=== PATIENT | male | born 1935 | race Caucasian/White ===

== ENCOUNTER 2017-08-01 11:04 | Inpatient (IN) | payer MEDICARE, BC ==
[2017-08-01 12:38] LABS: Hematocrit 38.3 % (42.0-52.0); Hemoglobin 12.7 gm/dL (13.5-18.0); Mean Cell Volume 86.1 fl (78-100); Mean Corpuscular Hemoglobin 28.5 pg (27-31); Mean Corpuscular Hgb Conc 33.2 g/dl (32-36); Mean Platelet Volume 8.8 fl (6.0-9.5); Neutrophil % 81.8 % (42-75.0); Platelet Count 386 K/mm3 (150-450); Red Blood Count 4.45 M/mm3 (4.7-6.0); Red Cell Distribution Width 14.2 % (11.5-14.0); White Blood Count 17.1 K/mm3 (4.0-10.5)
[2017-08-01 12:44] LABS: Urine Bilirubin 1 mg/dl (NEGATIVE); Urine Blood 50 /ul (NEGATIVE); Urine Ketone Negative (NEGATIVE); Urine Nitrite Negative (NEGATIVE); Urine Protein 100 mg/dL (NEGATIVE); Urine Specific Gravity >=1.030 SP.GR. (1.005-1.030)
[2017-08-01 12:53] LABS: Albumin * 2.8 gm/dl (3.4-5.0); Anion Gap 10.1 mmol/L (6.8-13.8); BUN/Creatinine Ratio 17.9 (9.0-21.6); Bilirubin, Total 0.7 mg/dL (0.0-1.1); Ca. Corrected For Albumin 10.2 mg/dL (8.4-10.2); Calcium * 9.6 mg/dL (7.9-10.9); Carbon Dioxide 32.4 mmol/L (24-32.6); Potassium 3.5 mmol/L (3.4-4.6); Total Protein 8.2 gm/dL (6.2-8.2)
[2017-08-01 12:53] LABS: Urine Appearance Clear; Urine Bacteria TRACE; Urine Color Dark Yellow; Urine WBC None Seen /hpf (0-5)
[2017-08-01] MEDS ORDERED: AZITHROMYCIN 250 MG TABLET PO ONE (14:01)
[2017-08-01] MEDS ORDERED: AZITHROMYCIN 250 MG TABLET ONE (14:02)
--- NOTE | 2017-08-01 14:12 | ERNOTE ---
Medical Problem HPI - Narrative Date of Service: 08/01/17 - General Chief Complaint: Flu Symptoms Time Seen by Provider: 08/01/17 12:19 Source: patient, RN notes reviewed Exam Limitations: no limitations - Immun/Allergies/Home Medications Immunizations: IMMUNIZATION HX Immunizations Up to Date Yes History of Influenza Vaccine Yes Hx Pneumococcal Vaccination Yes Allergies/Adverse Reactions: Allergies Penicillins Allergy (Unknown, Verified 08/01/17 11:23) Home Medications: HOME MEDICATIONS NK [No Home Medication] 08/01/17 [Last Taken Unknown] - History of Present History Narrative: Kwaku is a 82 year old male who is ambulatory to the ED from home for flu-like symptoms that began shortly after taking his daughter to the clinic on 07/20. She was diagnosed with influenza. He reports a cough, weakness, chills, body aches and vomiting since then. He has had pneumonia in the past and states he feels like that is what he has now. Date (Duration): 07/20/17 Review of Systems - Review of Systems Constitutional: Present: chills, fatigue, malaise. Absent: recent illness EYE: Absent: eye pain, eye discharge ENT: Present: nose congestion, nasal drainage. Absent: ear pain, sore throat Respiratory: Present: shortness of breath, cough. Absent: orthopnea, wheezing Cardiology: Absent: chest pain, palpitations, edema Gastrointestinal/Abdominal: Present: nausea, vomiting, eating less, drinking less. Absent: diarrhea, abdominal pain Genitourinary: Absent: dysuria, hematuria Musculoskeletal: Present: muscle pain. Absent: neck pain Skin: Absent: rash, lesions Neurological: Absent: headache, dizziness/light-headedness Endocrine: Present: no symptoms reported Hematologic/Lymphatic: Absent: easy bruising, easy bleeding Psych: Present: no symptoms reported - Patient's Past Medical History Patient History - Medical: No pertinent hx Patient History - Cardiac/Respiratory: No pertinent hx Patient History - Cancer: No Hx of Cancer Patient History - Surgical Procedures: Orthopedic Patient History - Other: None - Social History Living Situations: alone Psych History: No pertinent hx Smoking Status: Never smoker Alcohol Use: none Drug Use: none - Immunizations Immunizations Up to Date: Yes Hx Pneumococcal Vaccination: Yes History of Influenza Vaccine: Yes Physical Exam - Physical Exam General Appearance: Present: wd/wn, alert, other - Pleasant, in no acute distress but appears to not feel well Head Exam: Present: normal inspection. Absent: swelling, tenderness Eye Exam: Normal inspection: bilateral Ears, Nose, Throat: Present: normal except - - lips cracked and dry, normal pharynx Neck: Present: normal inspection, nontender, supple Respiratory: Present: no respiratory distress, chest nontender, accessory muscle use - mild, crackles - Left lower lung Cardiovascular/Chest: Present: regular rate, rhythm, no murmur Gastrointestinal/Abdominal: Present: nontender, nondistended, soft Extremity Exam: Present: normal inspection, no edema Neurological Exam: Present: alert, oriented, normal mood/affect, no motor/ sensory deficits Skin Exam: Present: warm/dry, pallor ED Progress - Results and Orders Patient's Lab Results:: I have reviewed the patient's lab results. - Vital Signs Patient's Vital Signs:: I have reviewed the patient's vital signs. Vital Signs: Vital Signs 08/01/17 11:18 Temperature 37.4 C Pulse Rate 88 Respiratory 17 Rate Blood Pressure 142/72 O2 Sat by Pulse 92 Oximetry - X-Ray X-Ray #1 X-Ray: chest Interpretation: Reviewed by me X-ray Comments: Left lower lobe pneumonia - Progress/Reassessment Chief Complaint: Flu Symptoms Progress:: Unchanged Departure Clinical Impression: Left lower lobe pneumonia Qualifiers: Pneumonia type: due to unspecified organism Qualified Code(s): J18.1 - Lobar pneumonia, unspecified organism - Departure Disposition: [facility] Condition: Fair
[2017-08-01] MEDS ORDERED: cefTRIAXone SODIUM 1,000 MG in DEXTROSE 5 % IN WATER 50 ML IV ONE ×2 (14:15)
[2017-08-01] MEDS: NORMAL SALINE 1,000 ML IV PRN (21:54)
--- NOTE | 2017-08-01 23:19 | HP ---
Chief Complaint - Chief Complaint Date of Service: 08/01/17 Time of Service: 16:30 Chief Complaint: Shortness of breath History of Present Illness: Kwaku is an 82 yo male that reports worsening shortness of breath and cough over the past week. His over the last week and since then he has been getting more short of breath. He presented to the ER today and chest xray shows left lower lobe pneumonia. Oxygen saturation was 89% on room air in the ER and he was placed on oxygen to keep sats >90%. - Patient's Past Medical History Patient History - Medical: No pertinent hx Patient History - Cardiac/Respiratory: Pneumonia Patient History - Cancer: No Hx of Cancer Patient History - Surgical Procedures: Orthopedic Patient History - Other: None - Family History Mother Family History - Medical: , History Unknown Family History - Cardiac/Respiratory: History Unknown Family History - Cancer: Other Father Family History - Medical: , History Unknown Family History - Cardiac/Respiratory: History Unknown Family History - Cancer: Liver Brother Family History - Medical: , History Unknown Family History - Cardiac/Respiratory: History Unknown Family History - Cancer: History Unknown Sister Family History - Medical: History Unknown Family History - Cardiac/Respiratory: History Unknown Family History - Cancer: History Unknown - Social History Living Situations: alone Psych History: No pertinent hx Smoking Status: Never smoker Have you smoked in the past 12 months: No Alcohol Use: none Drug Use: none - Immunizations Immunizations Up to Date: Yes Hx Pneumococcal Vaccination: Yes History of Influenza Vaccine: Yes Review Of Systems (GEN) - Review of Systems Generalized/Overall Review: Present: Weakness, Chills, Fever EENTM: Present: No Symptoms Reported Respiratory: Present: Cough, Shortness of Breath. Absent: Orthopnea, Stridor, Wheezing Cardiac: Absent: Chest Pain, Edema, Palpitations Abdominal: Absent: Nausea, Vomiting Genitourinary: Present: No Symptoms Reported Musculoskeletal: Present: No Symptoms Reported Neurological: Present: No Symptoms Reported Skin: Present: No Symptoms Reported Endocrine: Present: No Symptoms Reported Immunizations: IMMUNIZATION HX Immunizations Up to Date Yes History of Influenza Vaccine Yes Hx Pneumococcal Vaccination Yes Allergies/Adverse Reactions: Allergies Allergy/AdvReac Type Severity Reaction Status Date / Time Sulfa (Sulfonamide Allergy Severe Anaphylaxis Verified 08/08/17 16:27 Antibiotics) Penicillins Allergy Unknown Verified 08/08/17 16:27 Home Medications: HOME MEDICATIONS Levofloxacin [Levaquin] 750 mg PO DAILY #10 tab 08/09/17 [Last Taken Unknown] Ranitidine HCl [Zantac] 300 mg PO HS #30 tab 08/09/17 [Last Taken Unknown] hydrOXYzine HCL [Atarax] 25 mg PO QID PRN #90 tablet 08/09/17 [Last Taken Unknown] Exam - Exam Vital Signs: Vital Signs - Last Taken Temp 36.7 C 08/01/17 18:39 Pulse 88 08/01/17 18:39 Resp 20 08/01/17 18:39 BP 134/67 08/01/17 18:39 Pulse Ox 89 L 08/01/17 18:39 Constitutional: Present: Alert, Oriented x3, Cooperative ENT Exam: Present: hearing grossly normal Eye Exam: bilateral eye: normal inspection Respiratory: Present: crackles - LLL Cardiovascular/Chest: Present: regular rate, rhythm, no murmur Abdomen: Present: Normal bowel sounds, soft, nontender, nondistended Skin Exam: Present: normal color, warm/dry, no cyanosis Diagnostic Studies: Laboratory Results WBC 17.1 K/mm3 (4.0-10.5) H 08/01/17 12:15 RBC 4.45 M/mm3 (4.7-6.0) L 08/01/17 12:15 Hgb 12.7 gm/dL (13.5-18.0) L 08/01/17 12:15 Hct 38.3 % (42.0-52.0) L 08/01/17 12:15 MCV 86.1 fl (78-100) 08/01/17 12:15 MCH 28.5 pg (27-31) 08/01/17 12:15 MCHC 33.2 g/dl (32-36) 08/01/17 12:15 RDW 14.2 % (11.5-14.0) H 08/01/17 12:15 Plt Count 386 K/mm3 (150-450) 08/01/17 12:15 MPV 8.8 fl (6.0-9.5) 08/01/17 12:15 Immature Gran % (Auto) 2.30 % (0.001-0.429) H 08/01/17 12:15 Immature Gran # (Auto) 0.40 K/mm3 (0.000-0.0310) H 08/01/17 12:15 Neutrophils % 81.8 % (42-75.0) H 08/01/17 12:15 Lymphocytes % 6.9 % (20-51) L 08/01/17 12:15 Monocytes % 8.7 % (0.0-9) 08/01/17 12:15 Eosinophils % 0.0 % (0.0-3.0) 08/01/17 12:15 Basophils % 0.3 % (0.0-1.0) 08/01/17 12:15 Nucleated RBC % 0.0 k/mm3 (0-1) 08/01/17 12:15 Neutrophils # 14.0 K/mm3 (1.3-6.0) H 08/01/17 12:15 Lymphocytes # 1.2 k/mm3 (1.5-3.5) L 08/01/17 12:15 Monocytes # 1.5 k/mm3 (0.0-1.0) H 08/01/17 12:15 Eosinophils # 0.0 k/mm3 (0.0-0.7) 08/01/17 12:15 Absolute Basophils 0.1 k/mm3 (0.0-0.1) 08/01/17 12:15 Sodium 136 mmol/L (132-142) 08/01/17 12:15 Plasma Sodium 136 mmol/L (130-142) 08/01/17 12:15 Potassium 3.5 mmol/L (3.4-4.6) 08/01/17 12:15 Chloride 97 mmol/L (97-106) 08/01/17 12:15 Carbon Dioxide 32.4 mmol/L (24-32.6) 08/01/17 12:15 Anion Gap 10.1 mmol/L (6.8-13.8) 08/01/17 12:15 BUN 20 mg/dL (6-23) 08/01/17 12:15 Creatinine 1.12 mg/dL (0.4-1.4) 08/01/17 12:15 Est GFR (Non-Af Amer) 67 mL/min (60-130) 08/01/17 12:15 BUN/Creatinine Ratio 17.9 (9.0-21.6) 08/01/17 12:15 Random Glucose 121 mg/dL (70-110) H 08/01/17 12:15 Lactic Acid, Venous 1.3 mmol/L (0.4-1.9) 08/01/17 12:15 Calcium 9.6 mg/dL (7.9-10.9) 08/01/17 12:15 Calcium Adj for Albumin 10.2 mg/dL (8.4-10.2) 08/01/17 12:15 Total Bilirubin 0.7 mg/dL (0.0-1.1) 08/01/17 12:15 AST 63 U/L (0-48) H 08/01/17 12:15 ALT 84 U/L (19-67) H 08/01/17 12:15 Alkaline Phosphatase 82 U/L (50-170) 08/01/17 12:15 Total Protein 8.2 gm/dL (6.2-8.2) 08/01/17 12:15 Albumin 2.8 gm/dl (3.4-5.0) L 08/01/17 12:15 Urine Color Dark yellow 08/01/17 12:39 Urine Appearance Clear 08/01/17 12:39 Urine pH 6.0 pH (5.0-7.0) 08/01/17 12:39 Ur Specific [place] >=1.030 SP.GR. (1.005-1.030) 08/01/17 12:39 Urine Protein 100 mg/dL (NEGATIVE) H 08/01/17 12:39 Urine Glucose (UA) Negative mg/dL (NEGATIVE) 08/01/17 12:39 Urine Ketones Negative mg/dL (NEGATIVE) 08/01/17 12:39 Urine Blood 50 /ul (NEGATIVE) H 08/01/17 12:39 Urine Nitrate Negative (NEGATIVE) 08/01/17 12:39 Urine Bilirubin 1 mg/dl (NEGATIVE) H 08/01/17 12:39 Urine Ictotest Negative (NEGATIVE) 08/01/17 12:39 Prot Sulfosalicylic Acd Negative mg/dL (0) 08/01/17 12:39 Urine Urobilinogen 2.0 EU/dl (NORMAL) H 08/01/17 12:39 Ur Leukocyte Esterase Negative /ul (NEGATIVE) 08/01/17 12:39 Urine RBC 5-10 /hpf (0-5) H 08/01/17 12:39 Urine WBC None seen /hpf (0-5) 08/01/17 12:39 Ur Epithelial Cells 0-5 /hpf (0-5) 08/01/17 12:39 Urine Bacteria Trace (NONE) 08/01/17 12:39 Urine Culture Comments No culture indicated 08/01/17 12:39 Influenza Type A Ag Negative (NEGATIVE) 08/01/17 11:24 Influenza Type B Ag Negative (NEGATIVE) 08/01/17 11:24 Group A Strep Rapid Negative (NEGATIVE) 08/01/17 11:24 Assessment/Plan - Narrative Narrative: Kwaku is an 82 yo male with acute respiratory failure secondary to left lower lobe pneumonia. Will treat with oxygen at 2lpm to keep sats >90% and wean off oxygen as able. Will treat pneumonia with cefdinir and azithromycin. Due to pneumonia with acute respiratory failure will need to admit to acute inpatient and expect 2-3 midnight hospital course to treat and wean from oxygen. - Assessment/Plan (1) Acute respiratory failure with hypoxia Problem: Acute (2) Left lower lobe pneumonia Problem: Acute Qualifiers: Pneumonia type: due to unspecified organism Qualified Code(s): J18.1 - Lobar pneumonia, unspecified organism
[2017-08-02 05:55] LABS: Hematocrit 30.3 % (42.0-52.0); Hemoglobin 10.1 gm/dL (13.5-18.0); Mean Cell Volume 86.8 fl (78-100); Mean Corpuscular Hemoglobin 28.9 pg (27-31); Mean Corpuscular Hgb Conc 33.3 g/dl (32-36); Mean Platelet Volume 9.3 fl (6.0-9.5); Neutrophil # 10.6 K/mm3 (1.3-6.0); Neutrophil % 78.4 % (42-75.0); Platelet Count 307 K/mm3 (150-450); Red Blood Count 3.49 M/mm3 (4.7-6.0); Red Cell Distribution Width 14.5 % (11.5-14.0); White Blood Count 13.6 K/mm3 (4.0-10.5)
[2017-08-02 06:15] LABS: Anion Gap 10.8 mmol/L (6.8-13.8); BUN/Creatinine Ratio 22.4 (9.0-21.6); Carbon Dioxide 30.2 mmol/L (24-32.6); Estimated Creat Clear 81.5
[2017-08-02] MEDS: NORMAL SALINE 1,000 ML IV PRN ×3 (06:21→23:56)
[2017-08-02] MEDS: AZITHROMYCIN 250 MG TABLET PO SCH (08:05)
[2017-08-02] MEDS ORDERED: POTASSIUM CHLORIDE 20 MEQ TABLET.SA PO ONE (08:21)
[2017-08-02] MEDS: cefTRIAXone SODIUM 1,000 MG in DEXTROSE 5 % IN WATER 50 ML IV SCH ×2 (13:30)
--- NOTE | 2017-08-02 22:52 | PN ---
Subjective - Date and Time Seen Date: 08/02/17 Time: 12:30 Subjective Narrative: Short of breath with ambulation. No n/f/c/v. Objective - Vitals Vitals: Last Vital Signs Temp 36.6 C 08/02/17 18:31 Pulse 82 08/02/17 18:31 Resp 16 08/02/17 18:31 BP 115/56 08/02/17 18:31 Pulse Ox 92 08/02/17 18:31 - Abnormal Lab Findings Abnormal Lab Findings: Abnormal Lab Results 08/02/17 08/02/17 Range/Units 05:30 05:30 WBC 13.6 H D (4.0-10.5) K/mm3 RBC 3.49 L (4.7-6.0) M/mm3 Hgb 10.1 L (13.5-18.0) gm/dL Hct 30.3 L (42.0-52.0) % RDW 14.5 H (11.5-14.0) % Immature Gran % (Auto) 2.40 H (0.001-0.429) % Immature Gran # (Auto) 0.32 H (0.000-0.0310) K/mm3 Neutrophils % 78.4 H (42-75.0) % Lymphocytes % 9.7 L (20-51) % Monocytes % 9.1 H (0.0-9) % Neutrophils # 10.6 H (1.3-6.0) K/mm3 Lymphocytes # 1.3 L (1.5-3.5) k/mm3 Monocytes # 1.2 H (0.0-1.0) k/mm3 Potassium 3.0 L (3.4-4.6) mmol/L BUN/Creatinine Ratio 22.4 H (9.0-21.6) - Exam Constitutional: Present: Alert, Oriented x3, Cooperative ENT Exam: Present: hearing grossly normal Respiratory: Present: crackles - LLL Cardiovascular/Chest: Present: regular rate, rhythm, no murmur Abdomen: Present: Normal bowel sounds, soft, nontender, nondistended Assessment/Plan Plan Narrative: Continue to wean from oxygen. Continue Rocephin/azithromycin. He is improved but still needing oxygen. - Problems/Diagnosis (1) Acute respiratory failure with hypoxia Problem: Acute (2) Left lower lobe pneumonia Problem: Acute Qualifiers: Pneumonia type: due to unspecified organism Qualified Code(s): J18.1 - Lobar pneumonia, unspecified organism
[2017-08-03] MEDS: cefTRIAXone SODIUM 1,000 MG in DEXTROSE 5 % IN WATER 50 ML IV SCH ×4 (02:03→15:43)
[2017-08-03 05:58] LABS: Hemoglobin 9.9 gm/dL (13.5-18.0); Mean Corpuscular Hemoglobin 28.7 pg (27-31); Mean Platelet Volume 9.1 fl (6.0-9.5); Neutrophil # 8.7 K/mm3 (1.3-6.0); Neutrophil % 77.5 % (42-75.0); Platelet Count 328 K/mm3 (150-450); Red Blood Count 3.45 M/mm3 (4.7-6.0); Red Cell Distribution Width 14.5 % (11.5-14.0); White Blood Count 11.3 K/mm3 (4.0-10.5)
[2017-08-03 06:13] LABS: BUN/Creatinine Ratio 17.2 (9.0-21.6); Calcium * 8.8 mg/dL (7.9-10.9); Carbon Dioxide 29.4 mmol/L (24-32.6); Estimated Creat Clear 79.6; Potassium 3.4 mmol/L (3.4-4.6)
[2017-08-03] MEDS: AZITHROMYCIN 250 MG TABLET PO SCH (08:46)
[2017-08-03] MEDS: NORMAL SALINE 1,000 ML IV PRN ×2 (09:55→18:53)
--- NOTE | 2017-08-03 23:10 | PN ---
Subjective - Date and Time Seen Date: 08/03/17 Time: 16:45 Subjective Narrative: Reports continuing to get stronger and less short of breath. He was still hypoxic over last night and needed to be put back on oxygen after he had been weaned off yesterday afternoon. Objective - Vitals Vitals: Last Vital Signs Temp 36.4 C L 08/03/17 21:00 Pulse 74 08/03/17 21:00 Resp 18 08/03/17 21:00 BP 130/67 08/03/17 21:00 Pulse Ox 95 08/03/17 21:00 - Exam Constitutional: Present: Alert, Oriented x3, Cooperative ENT Exam: Present: hearing grossly normal Respiratory: Present: lungs clear, normal breath sounds Cardiovascular/Chest: Present: regular rate, rhythm, no murmur Abdomen: Present: Normal bowel sounds, soft, nontender, nondistended Skin Exam: Present: normal color, warm/dry, no cyanosis Assessment/Plan Plan Narrative: Currently has been weaned off oxygen, but he has desated at night. Will monitor over night again. Continue antibiotics. If remains on room air overnight will plan to discharge to home tomorrow. - Problems/Diagnosis (1) Left lower lobe pneumonia Problem: Acute Qualifiers: Pneumonia type: due to unspecified organism Qualified Code(s): J18.1 - Lobar pneumonia, unspecified organism (2) Acute respiratory failure with hypoxia Problem: Resolved
[2017-08-04] MEDS: cefTRIAXone SODIUM 1,000 MG in DEXTROSE 5 % IN WATER 50 ML IV SCH ×2 (02:10)
[2017-08-04] MEDS: NORMAL SALINE 1,000 ML IV PRN (03:28)
[2017-08-04] MEDS: AZITHROMYCIN 250 MG TABLET PO SCH (08:06)
--- NOTE | 2017-08-04 09:16 | DS ---
(1) Acute respiratory failure with hypoxia Problem: Resolved (2) Left lower lobe pneumonia Problem: Acute Qualifiers: Pneumonia type: due to unspecified organism Qualified Code(s): J18.1 - Lobar pneumonia, unspecified organism Description of Stay: Kwaku is an 82 yo male that was admitted for acute respiratory failure secondary to left lower lobe pneumonia. He was placed on oxygen at 2lpm due to oxygen of 89% on room air at rest. 2lpm via NC keep his oxygen >90%. He was treated with rocephin and azithromycin. He was weaned off of oxygen during the day but kept desaturating at night. Treatment was continued and he was able to stay off oxygen for >24 hours. He was discharged to home to complete antibiotic course with cefdinir and azithromycin. He will follow up with me in clinic in a week and have a repeat chest xray in 2 months. Procedures Performed: none Discharge Disposition: Home self care Disposition: Home self-care Condition: Good Discharge Activity: Activity as tolerated Discharge Diet: General/regular food Referrals: Seferino Ram DO [Primary Care Provider] - One Week Problem Oriented Discharge Instructions to Patient/Family: Community-Acquired Pneumonia, Adult, [id number] Additional Patient Instructions (free text): Please make TCM appointment unless intermediate discharge. Thank you! Shaista @ [phone]. Patient discharged with [facility]. Call report and fax paperwork to [facility] at discharge Disregard below medications. Patient was sent home on azithromycin and cefdinir. Complete Home Medications List: Complete Home Medication List: Levofloxacin [Levaquin] 750 mg PO DAILY #10 tab 08/09/17 Ranitidine HCl [Zantac] 300 mg PO HS #30 tab 08/09/17 hydrOXYzine HCL [Atarax] 25 mg PO QID PRN #90 tablet 08/09/17
[2017-08-04 15:12] VITALS: BP 142/66
== END 2017-08-04 15:35 | disposition home or self-care (01) | DRG 189 ==
LOC: ER 11:04 → MS 15:00 → OBSVTOIN 08-03 08:24
PROVIDERS: ADMIT Family Medicine; ATTEND Family Medicine
DX: J96.01 Acute respiratory failure with hypoxia (principal); J18.1 Lobar pneumonia, unspecified organism; R53.1 Weakness; Z87.01 Personal history of pneumonia (recurrent)
CPT/HCPCS: 36415; 71046; 80048; 80053; 81001; 83605; 85025; 87040; 87070; 87081; 87184; 87400; 87430; 87449; 99283; G0378

== ENCOUNTER 2017-08-08 14:48 | Observation (INO) | payer MEDICARE, BC ==
--- NOTE | 2017-08-08 15:09 | ERNOTE ---
Dyspnea - General Presenting Symptoms: shortness of breath Time Seen by Provider: 08/08/17 14:52 Source: patient, family Exam Limitations: no limitations - Immun/Allergies/Home Medications Immunizations: IMMUNIZATION HX Immunizations Up to Date Yes History of Influenza Vaccine Yes Hx Pneumococcal Vaccination Yes Allergies/Adverse Reactions: Allergies Sulfa (Sulfonamide Antibiotics) Allergy (Severe, Verified 08/08/17 16:27) Anaphylaxis Penicillins Allergy (Unknown, Verified 08/08/17 16:27) Home Medications: HOME MEDICATIONS Levofloxacin [Levaquin] 750 mg PO DAILY #10 tab 08/08/17 [Last Taken 08/08/17 11 :00 750 mg] - History of Present Illness Narrative: Patient was admitted on 08/01 for left lower lobe pneumonia (sputum culture positive for streptococcus pneumoniae) was discharged on 08/04. He was doing well till last night when he started to get more short of breath again.It started slowly, minimal cough, worse with walking. He was seen in the ER earlier today, had labs, Xray, EKG done. He was afebrile with normal (decreased ) WBC and O2sat (94%), but his CXR showed new RLL pneumonia. He was discharged home and his antibiotics changes to levaquin (according to sputum culture sensitivities), he filled the prescription immediately and took it. Since getting home he started to feel worse though, a couple of times he got light headed and dizzy when walking, felt like fainting, more short of breath again, breathing treatment did not help, denies chest pain Treatment [employer]: albuterol Modifying Factors - (Improves): Reports: nothing Modifying Factors (Worsens): Reports: activity Associated Symptoms-Dyspnea: Reports: fever/chills, cough, dizziness, lightheadedness. Denies: chest pain/discomfort Prior Treatment: Reports: recently seen, currently on antibiotics Review of Systems - Review of Systems Constitutional: Present: recent illness, chills Respiratory: Present: shortness of breath, cough Cardiology: Absent: chest pain Gastrointestinal/Abdominal: Absent: nausea, vomiting, abdominal pain Genitourinary: Present: no symptoms reported Neurological: Present: dizziness/light-headedness. Absent: headache, weakness, numbness - Patient's Past Medical History Patient History - Medical: No pertinent hx Patient History - Cardiac/Respiratory: Hypertension, Hyperlipidemia, Pneumonia Patient History - Cancer: No Hx of Cancer Patient History - Surgical Procedures: Orthopedic Patient History - Other: None - Family History Mother Family History - Medical: , History Unknown Family History - Cardiac/Respiratory: History Unknown Family History - Cancer: Other Father Family History - Medical: , History Unknown Family History - Cardiac/Respiratory: History Unknown Family History - Cancer: Liver Brother Family History - Medical: , History Unknown Family History - Cardiac/Respiratory: History Unknown Family History - Cancer: History Unknown Sister Family History - Medical: History Unknown Family History - Cardiac/Respiratory: History Unknown Family History - Cancer: History Unknown - Social History Living Situations: home Psych History: No pertinent hx - Immunizations Immunizations Up to Date: Yes Hx Pneumococcal Vaccination: Yes History of Influenza Vaccine: Yes Physical Exam - Physical Exam General Appearance: Present: wd/wn, alert, no apparent distress Eye Exam: Normal inspection: bilateral Ears, Nose, Throat: Present: normal pharynx Respiratory: Present: no respiratory distress, decreased breath sounds, crackles - both bases Cardiovascular/Chest: Present: regular rate, rhythm, no murmur Neurological Exam: Present: alert, oriented, normal mood/affect Skin Exam: Present: warm/dry, pallor ED Progress - Vital Signs Patient's Vital Signs:: I have reviewed the patient's vital signs. Vital Signs: Vital Signs 08/08/17 08/08/17 14:52 14:55 Temperature 36.5 C 36.5 C Pulse Rate 105 H 105 H Respiratory 15 15 Rate Blood Pressure 158/87 158/87 O2 Sat by Pulse 96 96 Oximetry - Progress/Reassessment Chief Complaint: Dyspnea Progress Note-Subjective: 08/08/17 15:[address] Ram 08/08/17 15:30 discussed with candido Coronel to admit for observation Departure Clinical Impression: Pneumonia of both lower lobes Qualifiers: Pneumonia type: due to unspecified organism Qualified Code(s): J18.9 - Pneumonia, unspecified organism - Departure Disposition: [facility] Condition: Stable
[2017-08-08] MEDS ORDERED: ALBUTEROL SULFATE 2.5 MG/0.5 ML VIAL.NEB IH PRN (16:43)
--- NOTE | 2017-08-08 17:41 | HP ---
Chief Complaint - Chief Complaint Date of Service: 08/08/17 Time of Service: 17:41 Chief Complaint: Shortness of breath History of Present Illness: Kwaku is an 82 yo male with recent inpatient treatment for pneumonia. She had improved and discharged to home. At home he reported progressive worsening of shortness of breath and returned to the ER. Chest xray showed worsening pneumonia. He had no hypoxia in the ER. He recently lost his and has been at home alone for the first time after his kids left to go back home. - Patient's Past Medical History Patient History - Medical: No pertinent hx Patient History - Cardiac/Respiratory: Hyperlipidemia, Pneumonia Patient History - Cancer: No Hx of Cancer Patient History - Surgical Procedures: Orthopedic Patient History - Other: None - Family History Mother Family History - Medical: , History Unknown Family History - Cardiac/Respiratory: History Unknown Family History - Cancer: Other Father Family History - Medical: , History Unknown Family History - Cardiac/Respiratory: History Unknown Family History - Cancer: Liver Brother Family History - Medical: , History Unknown Family History - Cardiac/Respiratory: History Unknown Family History - Cancer: History Unknown Sister Family History - Medical: History Unknown Family History - Cardiac/Respiratory: History Unknown Family History - Cancer: History Unknown - Social History Living Situations: alone Abuse History: No History of abuse Psych History: No pertinent hx Smoking Status: Never smoker Have you smoked in the past 12 months: No Alcohol Use: none Drug Use: none - Immunizations Immunizations Up to Date: Yes Hx Pneumococcal Vaccination: Yes History of Influenza Vaccine: Yes Review Of Systems (GEN) - Review of Systems Generalized/Overall Review: Absent: Weakness, Chills, Fever EENTM: Present: No Symptoms Reported Respiratory: Present: Cough, Shortness of Breath Cardiac: Absent: Chest Pain, Edema Abdominal: Absent: Nausea, Vomiting Genitourinary: Present: No Symptoms Reported Musculoskeletal: Present: No Symptoms Reported Neurological: Present: No Symptoms Reported Skin: Present: No Symptoms Reported Endocrine: Present: No Symptoms Reported Immunizations: IMMUNIZATION HX Immunizations Up to Date Yes History of Influenza Vaccine Yes Hx Pneumococcal Vaccination Yes Allergies/Adverse Reactions: Allergies Allergy/AdvReac Type Severity Reaction Status Date / Time Sulfa (Sulfonamide Allergy Severe Anaphylaxis Verified 08/08/17 16:27 Antibiotics) Penicillins Allergy Unknown Verified 08/08/17 16:27 Home Medications: HOME MEDICATIONS Levofloxacin [Levaquin] 750 mg PO DAILY #10 tab 08/09/17 [Last Taken Unknown] Ranitidine HCl [Zantac] 300 mg PO HS #30 tab 08/09/17 [Last Taken Unknown] hydrOXYzine HCL [Atarax] 25 mg PO QID PRN #90 tablet 08/09/17 [Last Taken Unknown] Exam - Exam Vital Signs: Vital Signs - Last Taken Temp 36.6 C 08/08/17 16:15 Pulse 94 08/08/17 16:15 Resp 16 08/08/17 16:15 BP 126/68 08/08/17 16:15 Pulse Ox 96 08/08/17 16:15 Constitutional: Present: Alert, Oriented x3, Cooperative, No distress ENT Exam: Present: hearing grossly normal Eye Exam: bilateral eye: normal inspection Respiratory: Present: lungs clear, normal breath sounds Cardiovascular/Chest: Present: regular rate, rhythm, no murmur Abdomen: Present: Normal bowel sounds, soft, nontender, nondistended Extremity: Present: normal inspection, no pedal edema, normal capillary refill Skin Exam: Present: normal color, warm/dry, no cyanosis Neurologic: Present: alert, normal mood/affect, oriented x 3 Appearance: Present: appropriate appearance, appropriate insight Assessment/Plan - Narrative Narrative: Kwaku is an 82 yo male with: 1) Bilateral Lower Lobe Pneumonia - Recently treated in the inpatient setting. Patient has reported shortness of breath. He clinically looks well. There is no evidence of respiratory distress and no hypoxia. The chest xray does show worsening pneumonia, but I wonder if xray findings are just what had not shown up on the initial chest xray from the last admission as opposed to a new pneumonia. I suspect the shortness of breath may be more anxiety related from the recent passing of his . Will cover pneumonia with different antibiotics then recently on and give hydroxyzine which will help with shortness of breath whether it be from bronchospasm or anxiety. As he clinically looks good and has no hypoxia will admit to observation and monitor. Expect 1 midnight stay. If symptoms worsen or hypoxia develops may change to acute inpatient status. - Assessment/Plan (1) Pneumonia of both lower lobes Problem: Acute Qualifiers: Pneumonia type: due to unspecified organism Qualified Code(s): J18.9 - Pneumonia, unspecified organism
[2017-08-08] MEDS: hydrOXYzine HCL 25 MG TABLET PO SCH ×2 (18:01→20:07)
[2017-08-09 08:15] LABS: Hematocrit 36.4 % (42.0-52.0); Hemoglobin 11.6 gm/dL (13.5-18.0); Mean Cell Volume 88.8 fl (78-100); Mean Corpuscular Hemoglobin 28.3 pg (27-31); Mean Corpuscular Hgb Conc 31.9 g/dl (32-36); Mean Platelet Volume 8.7 fl (6.0-9.5); Neutrophil # 4.1 K/mm3 (1.3-6.0); Platelet Count 396 K/mm3 (150-450); Red Cell Distribution Width 14.7 % (11.5-14.0); White Blood Count 6.4 K/mm3 (4.0-10.5)
[2017-08-09] MEDS: hydrOXYzine HCL 25 MG TABLET PO SCH ×2 (09:05→13:44)
[2017-08-09 09:48] LABS: Anion Gap 9.5 mmol/L (6.8-13.8); BUN/Creatinine Ratio 9.2 (9.0-21.6); Bilirubin, Total 0.3 mg/dL (0.0-1.1); Ca. Corrected For Albumin 10.5 mg/dL (8.4-10.2); Carbon Dioxide 33.8 mmol/L (24-32.6); Potassium 4.3 mmol/L (3.4-4.6); Total Protein 7.7 gm/dL (6.2-8.2)
[2017-08-09 15:24] VITALS: BP 136/76
--- NOTE | 2017-08-09 16:34 | DS ---
(1) Pneumonia of both lower lobes Diagnosis(s): Kwaku is an 82 yo male that was admitted for potential new or worsening pneumonia. He had recently been treated as inpatient for pneumonia with rocephin/azithromycin and discharged to home on cefdinir/azithromycin. At home he had worsening shortness of breath and returned to the hospital. Chest xray shows worsening pneumonia compared to his initial chest xray. He clinically looked good without respiratory distress and without hypoxia. He was started on Levaquin in case cefdinir/azithromycin were failing and admitted to observation to monitor respiratory status. I suspect that current findings on chest xray were not worsening pneumonia but findings from the first pneumonia that just had not blossomed on the initial xray as he clinically looked good and had no hypoxia. I suspect shortness of breath to be more related to anxiety from recently losing his . For this he was started on hydroxyzine. He improved with this treatment and had no hypoxia or respiratory distress. On the following day he was discharged to home with continued levaquin and hydroxyzine prn. He also had some reported reflux and was started on ranitidine. Problem: Acute Qualifiers: Pneumonia type: due to unspecified organism Qualified Code(s): J18.9 - Pneumonia, unspecified organism Procedures Performed: none Discharge Disposition: Home self care Disposition: Home self-care Condition: Stable Discharge Activity: Activity as tolerated Discharge Diet: General/regular food Referrals: Seferino Ram DO [Primary Care Provider] - One Week Problem Oriented Discharge Instructions to Patient/Family: Community-Acquired Pneumonia, Adult, [id number] Additional Patient Instructions (free text): Follow up with Dr. Ram on 08-16-17 @ 9:45am. this will be a TCM appointment. [facility] Health set up at discharge. Prescriptions (Any new or edited meds): hydrOXYzine HCL [Atarax] 25 mg PO QID PRN #90 tablet PRN Reason: Shortness Of Breath, anxious Levofloxacin [Levaquin] 750 mg PO DAILY #10 tab Ranitidine HCl [Zantac] 300 mg PO HS #30 tab Complete Home Medications List: Complete Home Medication List: Levofloxacin [Levaquin] 750 mg PO DAILY #10 tab 08/09/17 Ranitidine HCl [Zantac] 300 mg PO HS #30 tab 08/09/17 hydrOXYzine HCL [Atarax] 25 mg PO QID PRN #90 tablet 08/09/17
[2017-08-10] MEDS ORDERED: LEVOFLOXACIN IN DEXTROSE 5 % 750 MG/150 ML BAG IV SCH (15:44)
== END 2017-08-09 17:15 | disposition home or self-care (01) ==
LOC: ER 14:48 → MS 15:36
PROVIDERS: ADMIT Family Medicine; ATTEND Family Medicine
DX: J18.9 Pneumonia, unspecified organism (principal); Z68.23 Body mass index [BMI] 23.0-23.9, adult
CPT/HCPCS: 36415; 71046; 80053; 83880; 84484; 85025; 93005; 94640; 99284; G0378